=== PATIENT | male | born 1985 | race Caucasian/White ===

== ENCOUNTER 2020-05-06 10:24 | Emergency (ER) | payer BC, SELFPAY ==
[2020-05-06 10:41] VITALS: BP 140/78; PULSE 81; RESP 18; TEMP 36.4; O2SAT 99; BMI 25.0
[2020-05-06 12:08] LABS: Bacteria Urine None Seen; RBC Urine None Seen (0-5/HPF)
[2020-05-06 12:26] LABS: Appearance Urine UA CLEAR; Bilirubin Urine UA NEGATIVE (NEGATIVE); Color Urine UA YELLOW; Glucose Urine UA NEGATIVE (Negative); Ketones Urine UA NEGATIVE (NEGATIVE); Leukocyte Esterase Urine UA NEGATIVE (NEGATIVE); Nitrite Urine UA NEGATIVE (Negative); Occult Blood Urine UA NEGATIVE (Negative); Protein Urine UA NEGATIVE (Negative); Urobilinogen Urine UA 0.2 E.U./dL (0.2); pH Urine UA 6.5 (4.5-8.0)
--- NOTE | 2020-05-06 12:30 | ED_ITS ---
HPI - Male Genitourinary General Chief complaint: Urogenital-Male Stated complaint: tectular pain Time Seen by Provider: 05/06/20 10:45 Source: patient Mode of arrival: Ambulatory Limitations: no limitations History of Present Illness HPI Narrative: This is a 34-year-old male comes emergency department with complaint of left testicular pain area of swelling or lump that he noticed yesterday evening. Patient states a little bit improved today but there is still some discomfort. Patient has had multiple urologic issues recently. He had a injury while masturbating in February. From his description sounds like he may have developed some ischemic injury, he also has been told he has pelvic floor dysfunction. He has been following with urologist in [facility]. He has seen PT. Patient states that he is on Cialis, Lyrica and aflov. Patient states that he has pain with urination, a sense of frequency, he states that he has disc her for prior to urinating and some hesitancy. He does not appreciate any urinary incontinence. He has noted he also has some pain right before he has a bowel movement. He has not had stool incontinence where he does not realize he is about to have a bowel movement. Patient denies any current fevers. He has had some suprapubic abdominal discomfort which he is unsure if this started with the testicular issues. He has also had some back pain that he is appreciated and has had some radiation of pain down his legs particularly the left. It seems to improve as the day goes by. He has not had any loss of sensation but has had been tingling. Patient has not had any back injuries that he is aware of. He denies other medical problems. No allergies to medications. He is currently visiting family on [facility]. He noticed the change to the testicle contacted his urologist who recommended being evaluated in urgent care or emergency department. Related Data Allergies Allergy/AdvReac Type Severity Reaction Status Date / Time No Known Drug Allergies Allergy Verified 05/06/20 10:44 Review of Systems Review of Systems ROS Unobtainable: All systems reviewed & are unremarkable except as noted in HPI and below Patient History Social History Smoking Status: Never smoker Smoking Status: Never smoker alcohol intake frequency: 0-2 drinks per day Substance Use Type: does not use Exam Narrative Exam Narrative: GENERAL: Alert and oriented x three, well-nourished male in mild distress. HEENT: Head normocephalic, atraumatic, EOMI, pupils reactive, face symmetric, moist mucous membranes NECK: Supple, full range of motion CARDIOVASCULAR: Regular rate and rhythm without murmurs, rubs or gallops. RESPIRATORY: Breath sounds equal bilaterally, no wheezes rales or rhonchi. ABDOMEN: Soft, nontender. Normoactive bowel sounds all 4 quadrants. No guarding or rebound, rigidity, no mass : No CVA tenderness. Male: normal external examination, no penile discharge or lesions, testicles non-tender, no appreciable lump noted, cremasteric reflex intact, no inguinal hernias noted. Patient does have some mild discomfort on the right pudendal region. BACK: No cervical, thoracic or lumbar vertebral point tenderness. Patient has normal range of motion. Patient's gait is normal. Rectal exam is deferred. Muscle strength is 5/5 in lower extremities, DTRs are 2/4 and lower extremities. Sensation is intact in the lower extremities. EXTREMITIES: Normal range of motion, no clubbing or edema. Neurovascularly intact NEUROLOGICAL: Cranial nerves II through XII grossly intact. Moving all extremities SKIN: Warm, dry, no petechiae, no rashes or lesions. Initial Vital Signs Initial Vital Signs: Vital Signs Temperature 97.5 F L 05/06/20 10:41 Pulse Rate 81 05/06/20 10:41 Respiratory Rate 18 05/06/20 10:41 Blood Pressure 140/78 05/06/20 10:41 Pulse Oximetry 99 05/06/20 10:41 Course Orders Ordered: ED Orders 05/06/20 11:50 Urinalysis and Microscopic Stat 05/06/20 12:55 US scrotum Stat XR lumbar spine 2-3V Stat Reevaluation(s) Reevaluation #1: Patient and I discussed his ultrasound findings, urinalysis and x-ray findings. Recommend follow-up with primary care for his low back pain which sounds like he has some radiculopathy. This is less likely to be involved with his testicular symptoms as he did have an incident in February that caused his chronic urologic issues. I did discuss that he would benefit from follow- up. And we also discussed that both these issues can potentially cause urinary issues so he should follow-up for his back pain. Time: 14:03 Vital Signs Vital signs: Vital Signs - 8 hr 05/06/20 13:54 Pulse Rate 77 Respiratory Rate 16 Blood Pressure 138/75 Pulse Oximetry 97 MDM - Male Genitourinary Lab Data Attestation: I reviewed the patient's lab results. Labs: Lab Results 05/06/20 Range/Units 11:50 Urine Color Yellow Urine Appearance Clear Urine pH 6.5 (4.5-8.0) Ur Specific [place] 1.010 (1.000-1.035) Urine Protein Negative (Negative) Urine Glucose (UA) Negative (Negative) g/dL Urine Ketones Negative (NEGATIVE) Urine Occult Blood Negative (Negative) Urine Nitrate Negative (Negative) Urine Bilirubin Negative (NEGATIVE) Urine Urobilinogen 0.2 (0.2) E.U./dL Ur Leukocyte Esterase Negative (NEGATIVE) Urine RBC None seen (0-5/HPF) Urine WBC 0-1/hpf (0-5/HPF) Urine Bacteria None seen (None) Ur Culture Indicated? Cult not indicated Imaging Data scrotum US: Radiologist's Impression: [address] [id number] ReportSigned Patient: Simon SureshMR#: [id number]: 1985Acct:[id number]/Sex: 34 / MDate of Service: 05/06/20Loc: EDAccession Number: [id number] Procedure: US scrotum Ordering Provider: Diana German D.O. PROCEDURE: US SCROTUM INDICATIONS: LEFT TESTICULAR PAIN, LUMP TECHNIQUE: Real-time scanning was performed of the scrotum and testicles, with image documentation. Color and pulse Doppler interrogation was performed of both testicles. COMPARISON: [facility], CR, XR LUMBAR SPINE 2-3V, 05/06/2020, 12:55. FINDINGS: Right: Testicle is normal in size at 4.8 x 2.4 x 3.1 cm, and homogenous in echotexture. Epididymis is normal in overall size and morphology. No hydrocele or varicoceles. Overlying scrotal skin is normal in thickness. Left: Testicle is normal in size at 4.7 x 2.4 x 2.2 cm, and homogeneous in echotexture. Epididymis is normal in overall size and morphology. No hydrocele or va ricoceles. Overlying scrotal skin is normal in thickness. Doppler: Color and pulse Doppler demonstrate normal and symmetric arterial flow in both testicles. IMPRESSION: Normal scrotal ultrasound, without intratesticular masses. Normal appearing, symmetric vascular flow can be seen of the testicles. Note: Concordant preliminary findings given by the perforator typist upon the completion of the examination to Dr. German at 1:46 p.m. on May 06, 2020. Dictated by: Kashmir Dunham M.D. on 05/06/2020 at 13:00 Approved by: Kashmir Dunham M.D. on 05/06/2020 at 13:01 Lumbar Xray: Radiologist's Impression: [address] [id number] ReportSigned Patient: Kelsy Suresh#: [id number]: 1985Acct:[id number]/Sex: 34 / MDate of Service: 05/06/20Loc: EDAccession Number: [id number] Procedure: XR lumbar spine 2-3V Ordering Provider: Diana German D.O. PROCEDURE: XR LUMBAR SPINE 2-3V INDICATIONS: back pain TECHNIQUE: 3 views of the lumbar spine were acquired. COMPARISON: None. FINDINGS: Bones: 5 [id number] vertebrae are present. There is normal bony alignment. No vertebral body compression fractures. No suspicious bony lesions. The disc heights are well preserved. Soft tissues: Overlying bowel gas pattern is normal. No suspicious soft tissue calcifications. IMPRESSION: No significant lumbar spine plain film abnormality is seen. Dictated by: Kashmir Dunham M.D. on 05/06/2020 at 12:17 Approved by: Kashmir Dunham M.D. on 05/06/2020 at 12:18 MDM Narrative Medical decision making narrative: This a 34-year-old male who comes in with complaint of testicular and a sensation of mass or lump on the left testicle. Patient had a injury in February that caused what sounds like possibly an ischemic event to the penis and has been told he has pelvic floor dysfunction as well. He has also had some chronic low back pain with radiation down his legs particularly on the left side. Because of his urinary issues L-spine x-ray was obtained which is negative. He has no other acute neurologic changes may be suspicious for cauda equina. He had a negative ultrasound, urinalysis is negative. Patient has been following with Urology regularly in [place]. Recommend patient follow up with them when he returns in the next 10-12 days after he has concluded his visit here. We did discuss that with his symptoms sometimes back pain or radiculopathy can mask urinary issues and vice versa so I do recommend he establish with a primary care. We did discuss red flag symptoms. Patient expresses understandings and had no additional questions here in the department. Discharge Plan Departure Patient Disposition: Home Clinical Impression: Pain in testicle Instructions: DI for Testicular Pain Activity Restrictions/Additional Instructions: Follow up with your urologist when you return to [place]. Call to set up follow u p. Your ultrasound imaging today did not show any acute finding. Your back x-ray did not show any acute changes. If you continue to have pain in your back and radiating to your legs I would recommend follow-up with a primary care physician for further evaluation. You can contact your insurance company for a list of local providers. Please return for fevers rapidly worsening symptoms, inability to urinate, new or worsening abdominal pain, persistent vomiting, new weakness in in your lower extremities, loss of bowel or bladder control or other new or concerning symptoms.
[2020-05-06 12:39] LABS: Culture Indicated Urine Cult Not Indicated; WBC Urine 0-1/HPF (0-5/HPF)
--- NOTE | 2020-05-06 12:55 | DI.RAD.S_ITS ---
PROCEDURE: XR LUMBAR SPINE 2-3V INDICATIONS: back pain TECHNIQUE: 3 views of the lumbar spine were acquired. COMPARISON: None. FINDINGS: Bones: 5 [id number] vertebrae are present. There is normal bony alignment. No vertebral body compression fractures. No suspicious bony lesions. The disc heights are well preserved. Soft tissues: Overlying bowel gas pattern is normal. No suspicious soft tissue calcifications. IMPRESSION: No significant lumbar spine plain film abnormality is seen. Dictated by: Kashmir Dunham M.D. on 05/06/2020 at 12:17 Approved by: Kashmir Dunham M.D. on 05/06/2020 at 12:18
--- NOTE | 2020-05-06 12:55 | DI.US.S_ITS ---
PROCEDURE: US SCROTUM INDICATIONS: LEFT TESTICULAR PAIN, LUMP TECHNIQUE: Real-time scanning was performed of the scrotum and testicles, with image documentation. Color and pulse Doppler interrogation was performed of both testicles. COMPARISON: [facility], CR, XR LUMBAR SPINE 2-3V, 05/06/2020, 12:55. FINDINGS: Right: Testicle is normal in size at 4.8 x 2.4 x 3.1 cm, and homogenous in echotexture. Epididymis is normal in overall size and morphology. No hydrocele or varicoceles. Overlying scrotal skin is normal in thickness. Left: Testicle is normal in size at 4.7 x 2.4 x 2.2 cm, and homogeneous in echotexture. Epididymis is normal in overall size and morphology. No hydrocele or varicoceles. Overlying scrotal skin is normal in thickness. Doppler: Color and pulse Doppler demonstrate normal and symmetric arterial flow in both testicles. IMPRESSION: Normal scrotal ultrasound, without intratesticular masses. Normal appearing, symmetric vascular flow can be seen of the testicles. Note: Concordant preliminary findings given by the metal room dental technician upon the completion of the examination to Dr. German at 1:46 p.m. on May 06, 2020. Dictated by: Kashmir Dunham M.D. on 05/06/2020 at 13:00 Approved by: Kashmir Dunham M.D. on 05/06/2020 at 13:01
[2020-05-06 13:54] VITALS: BP 138/75; PULSE 77; RESP 16; O2SAT 97
== END 2020-05-06 14:00 | disposition home or self-care (01) ==
PROVIDERS: Emergency Provider Emergency Medicine
DX: N50.812 Left testicular pain (principal)
CPT/HCPCS: 72100; 76870; 81001; 99284